=== PATIENT | female | born 1940 | race Caucasian/White ===

== ENCOUNTER 2021-09-22 13:46 | Outpatient (CLI) | payer MEDICARE ==
[~2021-09-22 13:46] MED LIST: Iopamidol 370 76% 100 ML VIAL ONE
== END 2021-09-22 13:47 | disposition home or self-care (01) ==
LOC: CT 13:46
PROVIDERS: ATTEND Thoracic Surgery (Cardiothoracic Vascular Surgery)
DX: I65.23 Occlusion and stenosis of bilateral carotid arteries (principal)
CPT/HCPCS: 70498; 82565; Q9967

== ENCOUNTER 2021-09-24 11:15 | Inpatient (IN) | payer MEDICARE ==
[2021-09-27 10:04] VITALS: BMI 36.2
[2021-09-28] MEDS ORDERED: Bupivacaine PF 0.5% 30 ML VIAL ONE (09:47)
[2021-09-28] MEDS ORDERED: EPINEPHrine 1 MG/ML AMP ONE (09:47)
[2021-09-28] MEDS ORDERED: Dexamethasone 4 mg/ml Vial ONE (09:47)
[2021-09-28] MEDS ORDERED: Heparin 5,000 UNITS/ML VIAL ONE (09:47)
[2021-09-28] MEDS ORDERED: Protamine Sulfate 50 MG/5 ML VIAL ONE (09:47)
[2021-09-28] MEDS ORDERED: Sodium Chloride 0.9% 0 ML ONE (10:00)
[2021-09-28] MEDS ORDERED: ceFAZolin 2 GM/DEX 5% 100 ML BAG ONE (10:00)
== END 2021-09-28 10:55 | disposition home or self-care (01) | DRG 68 ==
LOC: SURG A 09-28 08:55
PROVIDERS: ADMIT Thoracic Surgery (Cardiothoracic Vascular Surgery); ATTEND Thoracic Surgery (Cardiothoracic Vascular Surgery)
DX: I65.23 Occlusion and stenosis of bilateral carotid arteries (principal); I10 Essential (primary) hypertension; G47.33 Obstructive sleep apnea (adult) (pediatric); E11.9 Type 2 diabetes mellitus without complications; E66.09 Other obesity due to excess calories; Z96.643 Presence of artificial hip joint, bilateral; E78.2 Mixed hyperlipidemia; Z88.1 Allergy status to other antibiotic agents; Z90.710 Acquired absence of both cervix and uterus; Z98.51 Tubal ligation status; Z90.49 Acquired absence of other specified parts of digestive tract; Z98.84 Bariatric surgery status; Z90.721 Acquired absence of ovaries, unilateral; Z98.42 Cataract extraction status, left eye; Z98.41 Cataract extraction status, right eye; Z87.891 Personal history of nicotine dependence
CPT/HCPCS: J0171; J1100; J1642; J1644; J2720; S0020

== ENCOUNTER 2021-10-01 08:00 | Inpatient (IN) | payer MEDICARE ==
[2021-10-06] MEDS ORDERED: EPINEPHrine 1 MG/ML AMP ONE (06:25)
[2021-10-06] MEDS ORDERED: Bupivacaine PF 0.5% 30 ML VIAL ONE (06:25)
[2021-10-06] MEDS ORDERED: Dexamethasone 4 mg/ml Vial ONE (06:25)
[2021-10-06] MEDS ORDERED: Lidocaine 1% MPF 2 ML VIAL ONE (06:30)
[2021-10-06] MEDS ORDERED: Heparin 5,000 UNITS/ML VIAL ONE (06:42)
[2021-10-06] MEDS ORDERED: Protamine Sulfate 50 MG/5 ML VIAL ONE (06:42)
[2021-10-06] MEDS ORDERED: ceFAZolin 2 GM/DEX 5% 100 ML BAG ONE (07:19)
[2021-10-06] MEDS ORDERED: PROPOFOL 200 MG/20 ML VIAL ONE (07:24)
[2021-10-06] MEDS ORDERED: Ondansetron PF 4 MG/2 ML Vial ONE ×2 (07:24→08:56)
[2021-10-06] MEDS ORDERED: Glycopyrrolate 0.2 MG/ML 5 ML SYRINGE ONE (07:24)
[2021-10-06] MEDS ORDERED: Dexamethasone 20 MG/5 ML VIAL ONE (07:24)
[2021-10-06] MEDS ORDERED: ePHEDrine 50 MG/ML VIAL ONE (07:24)
[2021-10-06] MEDS ORDERED: Rocuronium Bromide 10 MG/ML (10ML VIAL) ONE (07:24)
[2021-10-06] MEDS ORDERED: Fentanyl 100 MCG/2 ML VIAL ONE (07:29)
[2021-10-06] MEDS ORDERED: ceFAZolin 2 GM/Dextrose 50 ML IVPB ONE (15:15)
[2021-10-06 17:29] VITALS: BMI 40.2
[2021-10-06] MEDS ORDERED: Phenylephrine 40 MG in Sodium Chloride 0.9% 250 ML 250 ML IVPB PRN (18:13)
[2021-10-06] MEDS ORDERED: Fentanyl 100 MCG/2 ML VIAL SLOW IVP PRN (18:13)
[2021-10-06] MEDS ORDERED: Nitroglycerin 50 MG/250 ML BOT 250 ML IVPB PRN (18:13)
[2021-10-06] MEDS ORDERED: Promethazine HCl 25 MG/ML VIAL IM PRN (18:13)
[2021-10-06] MEDS ORDERED: Cyclobenzaprine 10 MG TAB PO PRN (18:13)
[2021-10-06] MEDS ORDERED: Acetaminophen 325 MG TAB PO PRN (18:13)
[2021-10-06] MEDS ORDERED: Ondansetron PF 4 MG/2 ML Vial IVP PRN (18:13)
[2021-10-06] MEDS ORDERED: hydrALAZINE 20 MG/ML VIAL SLOW IVP PRN (18:13)
[2021-10-06] MEDS ORDERED: traMADol HCl 50 MG TAB PO PRN (18:13)
[2021-10-06] MEDS: Sodium Chloride 0.9% 1,000 ML IV SCH (18:39)
[2021-10-06] MEDS ORDERED: Gabapentin 100 MG CAP PO SCH (21:00)
[2021-10-06] MEDS: ceFAZolin 2 GM/Dextrose 50 ML 2 GM in Premix Bag 1 BAG IVPB SCH (22:54)
[2021-10-07] MEDS: Sodium Chloride 0.9% 1,000 ML IV SCH (06:17)
[2021-10-07] MEDS: ceFAZolin 2 GM/Dextrose 50 ML 2 GM in Premix Bag 1 BAG IVPB SCH (06:24)
[2021-10-07 08:34] VITALS: TEMP 96
[2021-10-07] MEDS ORDERED: Clopidogrel Bisulfate 75 MG TAB PO SCH (09:00)
[2021-10-07] MEDS ORDERED: Furosemide 40 MG TAB PO SCH (09:00)
[2021-10-07] MEDS ORDERED: Aspirin 325 MG TAB PO SCH (09:00)
[2021-10-07] MEDS ORDERED: , PO SCH (09:00)
== END 2021-10-07 09:55 | disposition home or self-care (01) | DRG 35 ==
LOC: SURG A 10-06 05:43 → IMCU/EMU 10-06 17:25
PROVIDERS: ADMIT Thoracic Surgery (Cardiothoracic Vascular Surgery); ATTEND Thoracic Surgery (Cardiothoracic Vascular Surgery)
PROC: 037J34Z Dilation of Left Common Carotid Artery with Drug-eluting Intraluminal Device, Percutaneous Approach (ICD-10-PCS; principal; 2021-10-06)
DX: I65.22 Occlusion and stenosis of left carotid artery (principal); Z96.643 Presence of artificial hip joint, bilateral; Z20.822 Contact with and (suspected) exposure to COVID-19; I10 Essential (primary) hypertension; E78.2 Mixed hyperlipidemia; E11.9 Type 2 diabetes mellitus without complications; E66.09 Other obesity due to excess calories; Z68.41 Body mass index [BMI] 40.0-44.9, adult; Z82.49 Family history of ischemic heart disease and other diseases of the circulatory system; Z87.891 Personal history of nicotine dependence; Z88.1 Allergy status to other antibiotic agents; Z79.84 Long term (current) use of oral hypoglycemic drugs; Z79.82 Long term (current) use of aspirin; Z79.899 Other long term (current) drug therapy; Z90.710 Acquired absence of both cervix and uterus; Z90.49 Acquired absence of other specified parts of digestive tract
CPT/HCPCS: 76000; 94640; C1776; C1876; C1884; J0171; J0690; J1100; J1642; J1644; J2405; J2704; J2720; J3010; J3490; J7050; J7620; S0020

== ENCOUNTER 2021-10-01 08:17 | Outpatient (CLI) | payer MEDICARE ==
[2021-10-01 20:40] LABS: SARS-CoV-2 PCR by NAA Not Detected (NotDetected)
== END 2021-10-01 08:18 | disposition home or self-care (01) ==
LOC: LABBT 08:17
PROVIDERS: ATTEND Thoracic Surgery (Cardiothoracic Vascular Surgery)
DX: Z01.812 Encounter for preprocedural laboratory examination (principal); I65.22 Occlusion and stenosis of left carotid artery; Z20.822 Contact with and (suspected) exposure to COVID-19
CPT/HCPCS: U0003; U0005

== ENCOUNTER 2021-11-09 16:07 | Inpatient (IN) | payer MEDICARE ==
[2021-11-09 19:57] VITALS: BMI 35.6
[2021-11-09] MEDS ORDERED: Ondansetron ODT 4 MG TAB PO PRN (20:19)
[2021-11-09] MEDS ORDERED: Acetaminophen 325 MG TAB PO PRN (20:19)
[2021-11-09] MEDS ORDERED: HumaLOG 300 UNITS/3 ML VIAL SC PRN (20:25)
[2021-11-09] MEDS ORDERED: Dextrose 50% Abboject 50 ML SYRINGE SLOW IVP PRN (20:25)
[2021-11-09] MEDS ORDERED: Dextrose 5% in Water 1,000 ML IV PRN (20:25)
[2021-11-09] MEDS ORDERED: Nitroglycerin 0.4 MG TAB (25 Tab Bottle) SL PRN (20:29)
[2021-11-09] MEDS ORDERED: Electrolyte Replacement Protocol 1 EACH FS SCH (20:45)
[2021-11-09] MEDS ORDERED: Simvastatin 10 MG TAB PO SCH (21:00)
[2021-11-09] MEDS: Heparin 5,000 UNITS/ML VIAL SC SCH (21:29)
[2021-11-09] MEDS: Gabapentin 100 MG CAP PO SCH (21:30)
[2021-11-09] MEDS: Docusate 100 MG CAP PO SCH (21:30)
[2021-11-09] MEDS: Furosemide 80 MG TAB PO SCH (21:31)
[2021-11-09] MEDS: Potassium Chloride 20 MEQ TAB PO SCH (21:31)
[2021-11-10 04:54] LABS: Hemoglobin A1c 5.9 % (4.0-6.0)
[2021-11-10 05:41] LABS: #Eosinphils 0.1 thou/uL (0.0-0.7); #Lymphocytes 1.2 thou/uL (1.20-3.40); #Monocytes 0.5 thou/uL (0.11-0.59); #Neutrophils 2.8 thou/uL (1.40-6.50); %Basophils 0.2 % (0.0-1.0); %Eosinophils 1.2 % (0.0-10.0); %Lymphocytes 26.8 % (21.0-51.0); %Monocytes 11.2 % (0.0-10.0); %Neutrophils 60.6 % (42.0-75.0); Hemoglobin 13.5 g/dL (12.0-16.0); MDiff Complete? YES; Macrocytosis SLIGHT = 6-15 cells (100X) (0-5/hpf); Mean Corpuscular HGB CONC 33.4 g/dL (32.0-36.0); Mean Corpuscular Hemoglobin 36.3 pg (27.0-31.0); Platelet Count 162 thou/uL (130-400); RBC Distribution Width 11.7 % (11.5-14.5); Red Blood Cell (RBC) Count 3.73 mill/uL (4.20-5.40); White Blood Cell (WBC) Count 4.6 thou/uL (4.8-10.8)
[2021-11-10] MEDS: HumaLOG 300 UNITS/3 ML VIAL SC PRN ×2 (06:07→18:26)
[2021-11-10 06:30] LABS: Anion Gap 21 mmol/L (10-20); BUN (Urea Nitrogen) 23 mg/dL (9.8-20.1); Calc. Creatinine Clearance 62 mL/min (70-130); Calcium 9.3 mg/dL (7.8-10.44); Carbon Dioxide 26 mmol/L (23-31); Cardiac Risk 2.2 (Less than 4.5); Chloride 95 mmol/L (98-107); Cholesterol 149 mg/dl (< 200 Desired); Glucose 225 mg/dL (83-110); HDL Cholesterol 69 mg/dL (>60 Neg Risk); LDL Cholesterol, Calculated 58 mg/dL; Magnesium 1.8 mg/dL (1.6-2.6); Sodium 139 mmol/L (136-145); Triglycerides 109 mg/dL (Less than 150)
[2021-11-10 06:41] LABS: Potassium 2.9 mmol/L (3.5-5.1)
[2021-11-10] MEDS ORDERED: Magnesium 2 GM/50 ML 2 GM in Premix Bag 1 BAG IVPB SCH (08:00)
[2021-11-10] MEDS ORDERED: Metolazone 5 MG TAB PO SCH (09:00)
[2021-11-10] MEDS: Aspirin 325 MG TAB PO SCH (09:25)
[2021-11-10] MEDS: Hydroxychloroquine Sulfate 200 MG TAB PO SCH (09:25)
[2021-11-10] MEDS: Potassium Chloride 20 MEQ TAB PO SCH ×4 (09:26→21:24)
[2021-11-10] MEDS: Heparin 5,000 UNITS/ML VIAL SC SCH ×2 (09:27→15:26)
[2021-11-10] MEDS: Clopidogrel Bisulfate 75 MG TAB PO SCH (09:27)
[2021-11-10] MEDS: Furosemide 80 MG TAB PO SCH (09:27)
[2021-11-10] MEDS: Docusate 100 MG CAP PO SCH ×2 (09:27→21:20)
[2021-11-10] MEDS ORDERED: Atorvastatin Calcium 20 MG TAB PO SCH (21:00)
[2021-11-10] MEDS: Gabapentin 100 MG CAP PO SCH (21:27)
[2021-11-11 04:54] LABS: #Eosinphils 0.1 thou/uL (0.0-0.7); #Lymphocytes 1.6 thou/uL (1.20-3.40); #Monocytes 0.4 thou/uL (0.11-0.59); #Neutrophils 2.4 thou/uL (1.40-6.50); %Basophils 0.5 % (0.0-1.0); %Eosinophils 1.7 % (0.0-10.0); %Lymphocytes 35.7 % (21.0-51.0); %Monocytes 9.4 % (0.0-10.0); %Neutrophils 52.7 % (42.0-75.0); Mean Corpuscular HGB CONC 33.9 g/dL (32.0-36.0); Mean Corpuscular Hemoglobin 36.8 pg (27.0-31.0); Mean Platelet Volume 8.9 fL (7.4-10.4); Platelet Count 153 thou/uL (130-400); RBC Distribution Width 11.7 % (11.5-14.5); Red Blood Cell (RBC) Count 3.82 mill/uL (4.20-5.40); White Blood Cell (WBC) Count 4.6 thou/uL (4.8-10.8)
[2021-11-11 05:16] LABS: Anion Gap 9 mmol/L (10-20); BUN (Urea Nitrogen) 23 mg/dL (9.8-20.1); Calc. Creatinine Clearance 52 mL/min (70-130); Calcium 9.1 mg/dL (7.8-10.44); Carbon Dioxide 34 mmol/L (23-31); Chloride 97 mmol/L (98-107); Glucose 210 mg/dL (83-110); Potassium 3.8 mmol/L (3.5-5.1); Sodium 136 mmol/L (136-145)
[2021-11-11] MEDS: HumaLOG 300 UNITS/3 ML VIAL SC PRN ×2 (06:18→11:02)
[2021-11-11] MEDS ORDERED: Enoxaparin Sodium 40 MG/0.4 ML SYRINGE SC SCH (09:00)
[2021-11-11] MEDS: Aspirin 325 MG TAB PO SCH (09:10)
[2021-11-11] MEDS: Potassium Chloride 20 MEQ TAB PO SCH (09:10)
[2021-11-11] MEDS: Hydroxychloroquine Sulfate 200 MG TAB PO SCH (09:10)
[2021-11-11] MEDS: Docusate 100 MG CAP PO SCH (09:10)
[2021-11-11] MEDS: Clopidogrel Bisulfate 75 MG TAB PO SCH (09:10)
[2021-11-11 15:52] VITALS: BP 132/63; TEMP 97.7
== END 2021-11-11 17:26 | disposition home or self-care (01) | DRG 312 ==
LOC: 2NO 17:58 → OBSVTOIN 11-10 16:47
PROVIDERS: ADMIT Hospitalist; ATTEND Family Medicine
DX: I95.1 Orthostatic hypotension (principal); N17.9 Acute kidney failure, unspecified; I50.32 Chronic diastolic (congestive) heart failure; Z20.822 Contact with and (suspected) exposure to COVID-19; E78.5 Hyperlipidemia, unspecified; I65.23 Occlusion and stenosis of bilateral carotid arteries; I11.0 Hypertensive heart disease with heart failure; I25.10 Atherosclerotic heart disease of native coronary artery without angina pectoris; E11.40 Type 2 diabetes mellitus with diabetic neuropathy, unspecified; E66.01 Morbid (severe) obesity due to excess calories; E86.0 Dehydration; Z96.643 Presence of artificial hip joint, bilateral; Z79.84 Long term (current) use of oral hypoglycemic drugs; Z88.1 Allergy status to other antibiotic agents; Z79.82 Long term (current) use of aspirin; Z79.899 Other long term (current) drug therapy; Z90.710 Acquired absence of both cervix and uterus; Z90.49 Acquired absence of other specified parts of digestive tract; Z90.09 Acquired absence of other part of head and neck; Z87.891 Personal history of nicotine dependence; Z79.01 Long term (current) use of anticoagulants; Z68.35 Body mass index [BMI] 35.0-35.9, adult
CPT/HCPCS: 36415; 36416; 71250; 80048; 80061; 83036; 83735; 84443; 85025; 87040; 93306; 93880; 93970; 96372; 96374; G0378; J1644; J1650; J1815; J3475

== ENCOUNTER 2022-10-06 09:57 | Outpatient (CLI) | payer MEDICARE | END 2022-10-06 09:58 | disposition home or self-care (01) | LOC: BICMAMMO 09:57 | PROVIDERS: ATTEND Family Medicine | DX: Z12.31 Encounter for screening mammogram for malignant neoplasm of breast (principal); Z91.89 Other specified personal risk factors, not elsewhere classified; M81.0 Age-related osteoporosis without current pathological fracture | CPT/HCPCS: 77063; 77067; 77080 ==

== ENCOUNTER 2024-10-25 09:47 | Outpatient (CLI) | payer MEDICARE | END 2024-10-25 09:48 | disposition home or self-care (01) | LOC: BICMAMMO 09:47 | PROVIDERS: ATTEND Family Medicine | DX: Z12.31 Encounter for screening mammogram for malignant neoplasm of breast (principal); Z78.0 Asymptomatic menopausal state; M81.0 Age-related osteoporosis without current pathological fracture | CPT/HCPCS: 77063; 77067; 77080 ==

== ENCOUNTER 2024-11-07 13:40 | Outpatient (CLI) | payer MEDICARE | END 2024-11-07 13:41 | disposition home or self-care (01) | LOC: ULT 13:40 | PROVIDERS: ATTEND Family Medicine | DX: I77.1 Stricture of artery (principal); M21.372 Foot drop, left foot; I70.202 Unspecified atherosclerosis of native arteries of extremities, left leg | CPT/HCPCS: 93923 ==

== ENCOUNTER 2025-01-16 08:53 | Outpatient (CLI) | payer MEDICARE | END 2025-01-16 08:54 | disposition home or self-care (01) | LOC: BICMRI 08:53 | PROVIDERS: ATTEND Family Medicine | DX: M21.372 Foot drop, left foot (principal); M47.816 Spondylosis without myelopathy or radiculopathy, lumbar region; M47.817 Spondylosis without myelopathy or radiculopathy, lumbosacral region; M47.815 Spondylosis without myelopathy or radiculopathy, thoracolumbar region; J34.89 Other specified disorders of nose and nasal sinuses; H74.8X3 Other specified disorders of middle ear and mastoid, bilateral; G93.89 Other specified disorders of brain; R90.89 Other abnormal findings on diagnostic imaging of central nervous system | CPT/HCPCS: 70553; 72148; A9577 ==

== ENCOUNTER 2025-05-21 07:44 | Outpatient (CLI) | payer MEDICARE ==
[2025-05-21 08:54] LABS: Estimated GFR - POC 86.0
[2025-05-21] MEDS ORDERED: Iopamidol 370 76% 100 ML VIAL ONE (13:08)
== END 2025-05-21 07:45 | disposition home or self-care (01) ==
LOC: CT 07:44
PROVIDERS: ATTEND Family Medicine
DX: R10.30 Lower abdominal pain, unspecified (principal); K74.00 Hepatic fibrosis, unspecified
CPT/HCPCS: 74177; 82565; Q9967

== ENCOUNTER 2025-05-27 13:58 | Outpatient (CLI) | payer MEDICARE ==
[2025-05-27 15:01] LABS: Estimated GFR - POC 73.0
== END 2025-05-27 13:59 | disposition home or self-care (01) ==
LOC: CT 13:58
PROVIDERS: ATTEND Family Medicine
DX: K55.1 Chronic vascular disorders of intestine (principal); K55.069 Acute infarction of intestine, part and extent unspecified
CPT/HCPCS: 36415; 74175; 82565

== ENCOUNTER 2025-09-02 10:48 | Outpatient (CLI) | payer MEDICARE | END 2025-09-02 10:49 | disposition home or self-care (01) | LOC: BICRAD 10:48 | PROVIDERS: ATTEND Family Medicine | DX: M79.671 Pain in right foot (principal) ==

== ENCOUNTER 2025-09-11 10:10 | Outpatient (CLI) | payer MEDICARE | END 2025-09-11 10:11 | disposition home or self-care (01) | LOC: BICRAD 10:10 | PROVIDERS: ATTEND Family Medicine | DX: Z01.89 Encounter for other specified special examinations (principal); W19.XXXA Unspecified fall, initial encounter ==